=== PATIENT | female | born 1970 | race Caucasian/White ===

== ENCOUNTER 2017-02-25 17:08 | Emergency (ER) | payer BC, OTHER ==
[~2017-02-25] VITALS: Ht 157.5 cm; Wt 64.5 kg
[~2017-02-25 17:08] MED LIST: CALC-649; FOLI-49; PREN1TAB12 PO; PREN1TAB49
[2017-02-25 17:26] VITALS: Ht 157.5 cm; Wt 64.5 kg
[2017-02-25] MEDS ORDERED: morphine 4 MG/ML VIAL IV STA (17:55)
[2017-02-25] MEDS ORDERED: ONDANSETRON 4 MG INJ IV STA (17:55)
[2017-02-25] MEDS ORDERED: SOD CHLORIDE 0.9% 500 ML IV STA (17:55)
[2017-02-25 18:26] LABS: URINE BLOOD (Dip) POC Trace-intact (NEGATIVE)
[2017-02-25 18:36] LABS: ADD SCAN DIFF NO
[2017-02-25 18:41] LABS: BASOPHILS % 0.4 % (0.0-2.0); EOSINOPHILS # 0.2 10^3/ul (0.0-0.5); HEMATOCRIT 36.9 % (37.0-47.0); HEMOGLOBIN 11.7 g/dl (12.0-16.0); LYMPHOCYTES # 2.8 10^3/ul (0.8-2.9); LYMPHOCYTES % 25.8 % (15.0-51.0); MEAN CORPUSCULAR HEMOGLOBIN 25.4 pg (29.0-33.0); MEAN CORPUSCULAR HGB CONC 31.7 g/dl (32.0-37.0); MEAN PLATELET VOLUME 11.5 fl (7.4-10.4); MONOCYTE # 0.6 10^3/ul (0.3-0.9); NEUTROPHIL # 7.1 10^3/ul (1.6-7.5); NEUTROPHILS % 65.5 % (39.0-77.0); PLATELET COUNT 262 10^3/UL (140-415); RED BLOOD COUNT 4.61 10^6/ul (4.20-5.40); RED CELL DISTRIBUTION WIDTH 15.5 % (11.5-14.5); WHITE BLOOD COUNT 10.7 10^3/ul (4.8-10.8)
[2017-02-25 19:00] LABS: ALBUMIN 4.2 g/dl (3.3-4.9); ALBUMIN/GLOBULIN RATIO 1.07; BILIRUBIN,INDIRECT 0.3 mg/dl (0-1.1); BILIRUBIN,TOTAL 0.3 mg/dl (0.2-1.3); CALCIUM 9.1 mg/dl (8.4-10.2); CREATININE 0.62 mg/dl (0.44-1.00); POTASSIUM 3.6 mmol/L (3.5-5.1); TOTAL PROTEIN 8.1 g/dl (6.1-8.1)
--- NOTE | 2017-02-25 19:15 | RADRPT ---
PROCEDURE: CT abdomen and pelvis without IV contrast. CLINICAL INDICATION: Abdominal pain TECHNIQUE: CT scan of the abdomen and pelvis without contrast was performed on the [employer] volumetric [address] scanner. The patient was scanned without intravenous contrast. Coronal and sagittal refo rmatted images were obtained from the axial source images. The CTDI vol is 9.8 mGy and the DLP is 56 7.49 mGy-cm. COMPARISON: None. FINDINGS: CT abdomen: Mild bibasilar atelectasis is seen. The remaining lung bases are clear. The heart size is not enla rged and is without pericardial thickening or effusion. The liver is normal in size and is without focal mass or intrahepatic biliary dilatation. The liver is enlarged measuring 20.2 cm in size with fatty infiltration. The spleen is normal in size and homo geneous in density. The stomach is grossly unremarkable. The pancreas as visualized is normal. Th e gallbladder has been removed. No common bile duct dilatation is seen. The adrenal glands are symm etric and normal. The kidneys are symmetrically unremarkable as well. No renal calculus or obstruc tive uropathy or mass lesion is seen. The aorta is of normal in caliber. There is no retroperitoneal lymphadenopathy. The robson hepatis region is clear. A diverticula is seen in the cecum. Bowel wall thickening in the cecum is seen wi th inflammatory changes in the adjacent mesentery. The large bowel is stool-filled. The small and r emainder of the large bowel and mesentery, as visualized, are otherwise unremarkable. The normal elyssa endix is identified. CT pelvis: The pelvic organs are normal. The pelvic sidewalls and inguinal regions are clear. No pelvic mass, lymphadenopathy, or free fluid is seen. No acute inflammation is seen. The urinary bladder is wit hin normal limits. A lucent lesion is seen in the L4 vertebral body measuring 1.6 cm in size and is consistent with a h emangioma. No other osteolytic or osteoblastic lesion is detected. The remaining osseous structures are otherwise intact. IMPRESSION: 1. CT findings consistent with cecal diverticulitis as described above. 2. Stool filled large bowel. 3. Mild hepatomegaly with fatty infiltration. 4. Status post cholecystectomy. RPTAT: HPNM Jitendra Little, Physician Date Time Electronically viewed and signed by Jitendra Little, Physician on 02/25/2017 19:15 /
[2017-02-25] MEDS ORDERED: metroNIDAZOLE 500 MG TAB PO STA (19:29)
[2017-02-25] MEDS ORDERED: CIPROFLOXACIN 500 MG TAB PO STA (19:29)
[2017-02-25] MEDS ORDERED: METR500T PO (19:33)
[2017-02-25] MEDS ORDERED: CIPR500T4 PO (19:33)
[2017-02-25] MEDS ORDERED: HYDR-906 PO (19:35)
[2017-02-25] MEDS ORDERED: ONDA4TAB14 PO (19:35)
--- NOTE | 2017-02-25 20:23 | ERD ---
ER Documentation Chief Complaint Date/Time DATE: 02/25/17 TIME: 20:17 Chief Complaint RIGHT LOWER ABDOMINAL PAIN SINCE YESTERDAY HPI This is a 46-year-old female with history of cholecystectomy to 3 years ago presenting to the emergency department complaining of right lower abdominal pain for 3 days. Patient rates the pain 8 out of 10, constant and described as sharp associated with nausea. Patient states that last week she started having diarrhea for 3 days which has resolved and the pain started to occur the day after. She denies any fevers, vomiting, urinary symptoms. She states her menstrual period was started February 11 and ended. Patient states that her last meal was 2 hours ago. Denies any decreased appetite ROS All systems reviewed and are negative except as per history of present illness. Medications Home Meds Active Scripts Ondansetron (Ondansetron Odt) 4 Mg Tab.rapdis, 4 MG PO Q6H Y for NAUSEA AND/OR VOMITING, #14 TAB Prov:SEBASTIAN LYN PA-C 02/25/17 Hydrocodone/Acetaminophen ([place] 5-325 Tablet) 1 Each Tablet, 1 EACH PO Q6 Y for PAIN, #20 TAB Prov:SEBASTIAN LYN PA-C 02/25/17 Metronidazole* (Flagyl*) 500 Mg Tablet, 500 MG PO TID for 10 Days, TAB Prov:SEBASTIAN LYN PA-C 02/25/17 Ciprofloxacin Hcl* (Ciprofloxacin Hcl*) 500 Mg Tablet, 500 MG PO BID for 10 Days , TAB Prov:SEBASTIAN LYN PA-C 02/25/17 Reported Medications Vit/Fe Fumarate/Fa ( 1-1 Tablet) 1 Tab Tablet, 1 TAB PO DAILY 07/11/12 Calcium Carbonate (Calcium) 1 Tab Tablet 02/10/10 Folic Acid* (Folic Acid*) 1 Mg Tablet 02/10/10 Vits W-Ca,Fe,Fa(<1MG) () 1 Tab Tablet 02/10/10 Allergies Allergies: Coded Allergies: No Known Drug Allergies (Verified Allergy, Mild, 02/25/17) PMhx/Soc Medical and Surgical Hx: pt denies Medical Hx, pt denies Surgical Hx History of Surgery: No Hx Neurological Disorder: No Hx Respiratory Disorders: No Hx Cardiac Disorders: No Hx Miscellaneous Medical Probl: No Hx Alcohol Use: No Hx Substance Use: No Hx Tobacco Use: No Smoking Status: Never smoker Physical Exam Vitals Vital Signs Date Time Temp Pulse Resp B/P Pulse Ox O2 Delivery O2 Flow Rate FiO2 02/25/17 17:26 98.1 93 18 130/76 99 Physical Exam GENERAL: well-developed/well-nourished, in no apparent distress, non-toxic appearing HENT: NC/AT, moist mucous membranes EYES: Conjunctiva normal NECK: Supple, no lymphadenopathy PULM: CTA bilaterally, no rales, rhonchi, or wheezing heard CV: Normal S1S2, RRR, good capillary refill GI: Soft, non-distended, tender to palpation right lower quadrant Normal bowel sounds, no masses or organomegaly felt on exam No gross peritonitis, no bruits Negative Rovsing, negative Benedict, negative McBurney's point, Negative CVAT BACK: No masses EXT: No clubbing, cyanosis, or edema NEURO: Alert and Orientated SKIN: Intact, normal turgor PSYCH: Normal mood and mentation Result Diagram: 02/25/176 02/25/17 181 Results 24 hrs Laboratory Tests Test 02/25/17 18:16 02/25/17 18:27 White Blood Count 10.710^3/ul Red Blood Count 4.6110^6/ul Hemoglobin 11.7g/dl Hematocrit 36.9% Mean Corpuscular Volume 80.0fl Mean Corpuscular Hemoglobin 25.4pg Mean Corpuscular Hemoglobin Concent 31.7g/dl Red Cell Distribution Width 15.5% Platelet Count 54158^3/UL Mean Platelet Volume 11.5fl Neutrophils % 65.5% Lymphocytes % 25.8% Monocytes % 6.0% Eosinophils % 2.0% Basophils % 0.4% Nucleated Red Blood Cells % 0.0/100WBC Neutrophils # 7.110^3/ul Lymphocytes # 2.810^3/ul Monocytes # 0.610^3/ul Eosinophils # 0.210^3/ul Basophils # 0.010^3/ul Nucleated Red Blood Cells # 0.010^3/ul Sodium Level 137mmol/L Potassium Level 3.6mmol/L Chloride Level 102mmol/L Carbon Dioxide Level 25mmol/L Anion Gap 14 Blood Urea Nitrogen 15mg/dl Creatinine 0.62mg/dl Glucose Level 122mg/dl Calcium Level 9.1mg/dl Total Bilirubin 0.3mg/dl Direct Bilirubin 0.00mg/dl Indirect Bilirubin 0.3mg/dl Aspartate Amino Transf (AST/SGOT) 33IU/L Alanine Aminotransferase (ALT/SGPT) 58IU/L Alkaline Phosphatase 115IU/L Total Protein 8.1g/dl Albumin 4.2g/dl Globulin 3.90g/dl Albumin/Globulin Ratio 1.07 Lipase 184U/L Bedside Urine pH (LAB) 6.0 Bedside Urine Protein (LAB) Trace Bedside Urine Glucose (UA) Negative Bedside Urine Ketones (LAB) Negative Bedside Urine Blood Trace-intact Bedside Urine Nitrite (LAB) Negative Bedside Urine Leukocyte Esterase (L Negative Current Medications Medications (Trade) Dose Ordered Sig/Aga Route PRN Reason Start Time Stop Time Status Last Admin Dose Admin Sodium Chloride (NS) 500 ml @ 500 mls/hr Q1H STAT IV 02/25/17 17:55 02/25/17 18:54 DC 02/25/17 18:27 Morphine Sulfate (morphine) 4 mg ONCE STAT IV 02/25/17 17:55 02/25/17 17:58 DC 02/25/17 18:26 Ondansetron HCl (Zofran Inj) 4 mg ONCE STAT IV 02/25/17 17:55 02/25/17 17:58 DC 02/25/17 18:26 Ciprofloxacin (Cipro) 500 mg ONCE STAT PO 02/25/17 19:29 02/25/17 19:30 DC 02/25/17 20:08 Metronidazole (Flagyl) 500 mg ONCE STAT PO 02/25/17 19:29 02/25/17 19:30 DC 02/25/17 20:08 Procedures/MDM This is a 46-year-old female with history of cholecystectomy 3 years ago presenting to the emergency department complaining of right lower quadrant abdominal pain and nausea for the past 3 days, likely due to cecal diverticulitis without any evidence of perforation or abscess or peritonitis. Lab work was drawn. IV access was established, patient was given 1 L fluids, morphine and Zofran. Patient's symptoms stabilized in the ED. CBC did not show any evidence of leukocytosis. CMP did not show any evidence of renal, liver , or electrolyte abnormalities. Lipase was normal. UA did not show any evidence of hemoglobin or urinary tract infection. CT of the abdomen and pelvis was done without any contrast was done in the ED, radiologist stated: 1. CT findings consistent with cecal diverticulitis as described above. 2. Stool filled large bowel. 3. Mild hepatomegaly with fatty infiltration. 4. Status post cholecystectomy. In the ED, patient was given Flagyl and Cipro. Patient is very stable for discharge for home and suitable for outpatient antibiotics with Cipro and Flagyl for the next 10 days. I discussed the patient to return to the emergency department for any worsening signs or symptoms. Discussion has been given regarding her condition. Discussed to follow-up with her primary care physician. Patient understands and agrees with this plan Stable for discharge for home Departure Diagnosis: Primary Impression: Diverticulitis Condition: Fair Patient Instructions: Diverticulitis Additional Instructions: Visite a montero mdsheyla maana para un EXAMEN.Regrese a estas instalaciones si no se mejora lazarus esperbamos o lazarus le dijimos. [place] toda la medicina ralph y lazarus se le indic. Regrese a estas instalaciones si no se mejora lazarus esperbamos o lazarus le dijimos. La medicina que se le recet puede causarle sueo.NO DEBE MANEJAR NI OPERAR MAQUINARIAS PELIGROSAS mientras esta tomando esta medicina! SEBASTIAN LYN PA-C February 25, 2017 20:23
[2017-02-25 20:26] VITALS: BP 126/84; PULSE 88; RESP 18
== END 2017-02-25 20:28 | disposition home or self-care (01) ==
LOC: FTE 17:08
DX: K57.32 Diverticulitis of large intestine without perforation or abscess without bleeding (principal); R11.0 Nausea
CPT/HCPCS: 74176; 80053; 81003; 83690; 85025; J2270; J2405; J7040; Z7610